=== PATIENT | female | born 1955 | race Caucasian/White ===

== ENCOUNTER 2017-05-11 20:20 | Emergency (ER) | payer OTHER ==
[2017-05-11] MEDS: morphine 4 MG/ML VIAL IM (23:20)
[2017-05-12] MEDS: KETOROLAC 60 MG INJ IM (00:31)
[2017-05-12] MEDS ORDERED: DIPHENHYDRAMINE 50 MG INJ IV (02:00)
[2017-05-12] MEDS ORDERED: METOCLOPRAMIDE 10 MG INJ IV (02:00)
== END 2017-05-12 04:00 | disposition home or self-care (01) ==
LOC: FTE 20:20
DX: M62.830 Muscle spasm of back (principal); E03.9 Hypothyroidism, unspecified; E11.9 Type 2 diabetes mellitus without complications
CPT/HCPCS: 36415; 84443; 96372; 99284-25

== ENCOUNTER 2017-08-26 02:21 | Emergency (ER) | payer OTHER ==
[2017-08-26] MEDS: IBUPROFEN 200 MG TAB PO (04:48)
== END 2017-08-26 07:00 | disposition home or self-care (01) ==
LOC: FTE 02:21
DX: S99.911A Unspecified injury of right ankle, initial encounter (principal); E11.9 Type 2 diabetes mellitus without complications; E03.9 Hypothyroidism, unspecified; X58.XXXA Exposure to other specified factors, initial encounter; Y92.9 Unspecified place or not applicable
CPT/HCPCS: 73610; 73610-RT; 99283-25